=== PATIENT | female | born 1940 | race Caucasian/White ===

== ENCOUNTER 2019-05-10 23:32 | Emergency (ER) | payer MEDICARE, OTHER ==
[~2019-05-10] VITALS: Ht 167.6 cm; Wt 104.5 kg
[2019-05-11 00:25] LABS: BASOPHILS # (AUTO) 0.1 X10'3 (0-0.2); BASOPHILS % (AUTO) 0.7 % (0-1); EOSINOPHILS # (AUTO) 0.1 X10'3 (0-0.9); EOSINOPHILS % (AUTO) 0.4 % (0-6); HEMATOCRIT 34.6 % (35.0-45.0); HEMOGLOBIN 11.4 g/dl (12.0-16.0); LYMPHOCYTES # (AUTO) 0.8 X10'3 (1.1-4.8); LYMPHOCYTES % (AUTO) 6.7 % (21-51); MEAN CORPUSCULAR HEMOGLOBIN 26.4 PG (27.0-31.0); MEAN CORPUSCULAR HGB CONC 32.9 g/dL (33.0-36.5); MEAN CORPUSCULAR VOLUME 80.4 FL (78-98); MEAN PLATELET VOLUME 7.6 FL (7.4-10.4); MONOCYTES # (AUTO) 0.9 X10'3 (0-0.9); MONOCYTES % (AUTO) 7.5 % (2-12); NEUTROPHILS # (AUTO) 10.3 X10'3 (1.8-7.7); NEUTROPHILS % (AUTO) 84.7 % (42-75); PLATELET COUNT 167 X10'3 (140-440); RED CELL DISTRIBUTION WIDTH 15.9 % (11.5-14.5); WHITE BLOOD COUNT 12.2 X10'3 (4.5-11.0)
[2019-05-11 00:32] LABS: ALANINE AMINOTRANSFERASE 25 U/L (12-78); ALBUMIN 3.5 G/DL (3.4-5.0); ALBUMIN/GLOBULIN RATIO 0.8 (1.1-1.5); ALKALINE PHOSPHATASE 94 IU/L (46-116); ANION GAP 10 (8-16); ASPARTATE AMINO TRANSFERASE 20 U/L (10-37); BILIRUBIN,TOTAL 0.4 MG/DL (0.1-1.0); BLOOD UREA NITROGEN 16 MG/DL (7-18); BUN/CREATININE RATIO 16.3 (6.6-38.0); CALCIUM 9.5 MG/DL (8.5-10.1); CHLORIDE 104 MMOL/L (99-107); CREATININE 0.98 MG/DL (0.40-0.90); GLUCOSE 191 MG/DL (70-104); POTASSIUM 3.9 MMOL/L (3.5-5.1); SODIUM 139 MMOL/L (135-145); TOTAL CARBON DIOXIDE 25.2 MMOL/L (24-32); TOTAL PROTEIN 7.8 G/DL (6.4-8.2); eGFR 55 ML/MIN
[2019-05-11] MEDS ORDERED: aspirin 81mg tab.chew PO ONE (00:40)
[2019-05-11] MEDS ORDERED: ondansetron/PF 4mg/2ml inj IV ONE (00:45)
--- NOTE | 2019-05-11 01:02 | NUR ---
Patient up to the bathroom w/o problem, was unable to give UA
[2019-05-11] MEDS ORDERED: normal saline 1000ML IV soln IVB ONE (01:20)
[2019-05-11 02:02] LABS: LIPASE 67 U/L (73-393); MAGNESIUM 1.4 MG/DL (1.5-2.4)
--- NOTE | 2019-05-11 02:28 | NUR ---
Patient resting comfortably on gurney, reports nausea is resloving since Zofran given.
[2019-05-11] MEDS ORDERED: ONDA4TAB6 PO (02:55)
[2019-05-11] MEDS ORDERED: acetaminophen 325mg tablet PO ONE (03:00)
--- NOTE | 2019-05-11 03:17 | NUR ---
Patient gave urine sample, per MD will discharge after results.
[2019-05-11 03:28] LABS: CLARITY,URINE SLIGHTLY CLOUDY (Clear); COLOR,URINE YELLOW (Yellow); GLUCOSE, URINE NEGATIVE (Neg); KETONES,URINE NEGATIVE (Neg); LEUKOCYTE ESTERASE ,URINE NEGATIVE (Neg); NITRITES, URINE NEGATIVE (Neg); OCCULT BLOOD,URINE TRACE-INTACT (Neg); PH,URINE 5.5 (4.8-8.0); PROTEIN,URINE 30 mg/dl (Neg); UROBILINOGEN,URINE 0.2 E.U/dL (0.2-1.0)
[2019-05-11 03:30] LABS: UA COLLECTION TYPE CLN CATCH MIDSTREAM
[2019-05-11 03:35] LABS: FINE GRANULAR CAST 0-3 /LPF (NEGATIVE); HYALINE CASTS 0-3 /LPF (NEGATIVE)
[2019-05-11 03:36] LABS: BACTERIA,URINE FEW /HPF (Neg); MUCUS STRANDS FEW /LPF (Neg); RBC,URINE 0-2 /HPF (0-2); SQUAMOUS EPITHELIAL CELL,UR MANY /LPF (FEW); WBC,URINE 0-4 /HPF (0-4)
[2019-05-11 03:53] VITALS: BP 147/51
== END 2019-05-11 03:57 | disposition home or self-care (01) ==
LOC: ER 23:33 → EDBD 23:33 → ER 05-11 03:57
DX: K52.9 Noninfective gastroenteritis and colitis, unspecified (principal); M54.5 Low back pain; R51 Headache; G89.29 Other chronic pain; E11.9 Type 2 diabetes mellitus without complications; I25.10 Atherosclerotic heart disease of native coronary artery without angina pectoris; Z90.49 Acquired absence of other specified parts of digestive tract; Z95.1 Presence of aortocoronary bypass graft; Z88.8 Allergy status to other drugs, medicaments and biological substances; Z79.899 Other long term (current) drug therapy; Z88.6 Allergy status to analgesic agent
CPT/HCPCS: 36415; 71045; 74176; 80053; 81001; 83690; 83735; 83880; 84484; 85025; 85610; 93005; 96361; 96374; 99284; J2405; J7030; J7040

== ENCOUNTER 2022-04-04 11:36 | Day surgery (SDC) | payer MEDICARE, OTHER ==
[2022-04-04] VITALS (13 sets, daily range): BP systolic 114–173; BP diastolic 57–87
[~2022-04-04] VITALS: Ht 167.6 cm; Wt 112.4 kg
[~2022-04-04 11:36] MED LIST: ONDA4TAB6 PO
[2022-04-04] MEDS ORDERED: MIDAZolam 1mg/ml 10ml vial IV ONE (11:55)
[2022-04-04] MEDS ORDERED: fentaNYL/PF 50MCG/1 ML 2ML syringe IV ONE (11:55)
[2022-04-04] MEDS ORDERED: normal saline 1000ml 1,000 ML IV SCH (11:55)
[2022-04-04] MEDS ORDERED: OMEP20CA15 PO (12:28)
[2022-04-04] MEDS ORDERED: ATOR40TA72 PO (12:28)
[2022-04-04] MEDS ORDERED: METF-438 PO (12:28)
[2022-04-04] MEDS ORDERED: EZET10TA6 PO (12:28)
[2022-04-04] MEDS ORDERED: APIX5TAB3 PO (12:28)
[2022-04-04] MEDS ORDERED: SOTA80TA73 PO (12:28)
[2022-04-04] MEDS ORDERED: FOLI0.4T6 PO (12:28)
[2022-04-04] MEDS ORDERED: DENO60DI SUBCUT (12:28)
[2022-04-04] MEDS ORDERED: LIRA0.6P2 SQ (12:28)
[2022-04-04] MEDS ORDERED: LEVO125T68 PO (12:28)
[2022-04-04] MEDS ORDERED: LANTUS SQ (12:28)
[2022-04-04] MEDS ORDERED: CHOL200074 PO (12:28)
[2022-04-04] MEDS ORDERED: [UNRECOGNIZED DRUG - OTHER] PO (12:28)
[2022-04-04] MEDS ORDERED: CARV25TA2 PO (12:28)
[2022-04-04] MEDS ORDERED: DULA1.5P SQ (12:28)
== END 2022-04-04 15:23 | disposition home or self-care (01) ==
LOC: SSTAY O 11:36
PROVIDERS: ATTEND Student in an Organized Health Care Education/Training Program
DX: I48.91 Unspecified atrial fibrillation (principal); Z79.899 Other long term (current) drug therapy; Z98.890 Other specified postprocedural states; Z88.2 Allergy status to sulfonamides; Z88.6 Allergy status to analgesic agent; Z88.8 Allergy status to other drugs, medicaments and biological substances; I48.92 Unspecified atrial flutter; E66.9 Obesity, unspecified
CPT/HCPCS: 82948; 92960; 93005; J2250; J3010; J7030; A4620

== ENCOUNTER 2022-06-18 08:47 | Emergency (ER) | payer MEDICARE, OTHER ==
[~2022-06-18] VITALS: Ht 165.1 cm; Wt 100.9 kg
[~2022-06-18 08:47] MED LIST changes: +APIX5TAB3 PO; +ATOR40TA72 PO; +CARV25TA2 PO; +CHOL200074 PO; +DENO60DI SUBCUT; +DULA1.5P SQ; +EZET10TA6 PO; +FOLI0.4T6 PO; +LANTUS SQ; +LEVO125T68 PO; +LIRA0.6P2 SQ; +METF-438 PO; +OMEP20CA15 PO; -ONDA4TAB6 PO; +SOTA80TA73 PO; +[UNRECOGNIZED DRUG - OTHER] PO
[2022-06-18 09:18] VITALS: BP 148/70
[2022-06-18 10:01] LABS: BASOPHILS # (AUTO) 0.1 X10'3 (0-0.2); BASOPHILS % (AUTO) 0.8 % (0-1); EOSINOPHILS # (AUTO) 0.1 X10'3 (0-0.9); HEMATOCRIT 37.4 % (35.0-45.0); HEMOGLOBIN 12.1 g/dl (12.0-16.0); LYMPHOCYTES # (AUTO) 1.8 X10'3 (1.1-4.8); LYMPHOCYTES % (AUTO) 17.2 % (21-51); MEAN CORPUSCULAR HEMOGLOBIN 28.4 PG (27.0-31.0); MEAN CORPUSCULAR HGB CONC 32.4 g/dL (33.0-36.5); MEAN CORPUSCULAR VOLUME 87.5 FL (78-98); MONOCYTES # (AUTO) 0.7 X10'3 (0-0.9); MONOCYTES % (AUTO) 6.7 % (2-12); NEUTROPHILS # (AUTO) 7.6 X10'3 (1.8-7.7); NEUTROPHILS % (AUTO) 74.3 % (42-75); PLATELET COUNT 147 X10'3 (140-440); RED BLOOD COUNT 4.27 X10'6 (4.20-5.60); RED CELL DISTRIBUTION WIDTH 15.9 % (11.5-14.5); WHITE BLOOD COUNT 10.2 X10'3 (4.5-11.0)
[2022-06-18 10:23] LABS: ALANINE AMINOTRANSFERASE 21 U/L (12-78); ALBUMIN 3.5 G/DL (3.4-5.0); ALBUMIN/GLOBULIN RATIO 0.9 (1.1-1.5); ALKALINE PHOSPHATASE 66 IU/L (46-116); ANION GAP 8 (8-16); ASPARTATE AMINO TRANSFERASE 21 U/L (10-37); BILIRUBIN,TOTAL 0.4 MG/DL (0.1-1.0); BLOOD UREA NITROGEN 18 MG/DL (7-18); CHLORIDE 106 MMOL/L (99-107); GLUCOSE 200 MG/DL (70-104); POTASSIUM 4.2 MMOL/L (3.5-5.1); SODIUM 142 MMOL/L (135-145); TOTAL CARBON DIOXIDE 27.9 MMOL/L (24-32); TOTAL PROTEIN 7.5 G/DL (6.4-8.2); eGFR 43 ML/MIN
== END 2022-06-18 13:43 | disposition left against medical advice (07) ==
LOC: ER 08:47
DX: R07.89 Other chest pain (principal); Z53.21 Procedure and treatment not carried out due to patient leaving prior to being seen by health care provider
CPT/HCPCS: 36415; 71045; 80053; 83880; 84484; 85025; 93005

== ENCOUNTER 2022-06-20 09:48 | Outpatient (CLI) | payer MEDICARE, OTHER ==
[2022-06-20 10:38] LABS: BASOPHILS # (AUTO) 0.1 X10'3 (0-0.2); BASOPHILS % (AUTO) 1.2 % (0-1); EOSINOPHILS # (AUTO) 0.1 X10'3 (0-0.9); HEMATOCRIT 36.9 % (35.0-45.0); HEMOGLOBIN 11.9 g/dl (12.0-16.0); LYMPHOCYTES # (AUTO) 2.4 X10'3 (1.1-4.8); LYMPHOCYTES % (AUTO) 25.4 % (21-51); MEAN CORPUSCULAR HEMOGLOBIN 28.1 PG (27.0-31.0); MEAN CORPUSCULAR HGB CONC 32.4 g/dL (33.0-36.5); MEAN CORPUSCULAR VOLUME 86.9 FL (78-98); MEAN PLATELET VOLUME 8.2 FL (7.4-10.4); MONOCYTES # (AUTO) 0.5 X10'3 (0-0.9); MONOCYTES % (AUTO) 5.4 % (2-12); NEUTROPHILS # (AUTO) 6.3 X10'3 (1.8-7.7); PLATELET COUNT 151 X10'3 (140-440); RED BLOOD COUNT 4.25 X10'6 (4.20-5.60); RED CELL DISTRIBUTION WIDTH 15.6 % (11.5-14.5); WHITE BLOOD COUNT 9.4 X10'3 (4.5-11.0)
[2022-06-20 10:42] LABS: APTT 31 SECONDS (22-32)
[2022-06-20 10:43] LABS: ALBUMIN 3.4 G/DL (3.4-5.0); ANION GAP 8 (8-16); BLOOD UREA NITROGEN 17 MG/DL (7-18); BUN/CREATININE RATIO 14.9 (6.6-38.0); CALCIUM 9.5 MG/DL (8.5-10.1); CHLORIDE 106 MMOL/L (99-107); CHOL/HDL RATIO 2.8 (0.00-4.99); CHOLESTEROL 103 MG/DL (0-200); CREATININE 1.14 MG/DL (0.40-0.90); GLUCOSE 126 MG/DL (70-104); HDL CHOLESTEROL 37 MG/DL (35-60); LDL CHOLESTEROL 44 MG/DL (50-100); POTASSIUM 3.9 MMOL/L (3.5-5.1); SODIUM 141 MMOL/L (135-145); TOTAL CARBON DIOXIDE 27.5 MMOL/L (24-32); TRIGLYCERIDES 168 MG/DL (20-135); eGFR 46 ML/MIN
== END 2022-06-20 23:59 | disposition home or self-care (01) ==
LOC: LAB 09:48 → EDSTATUS 06-27 17:30
PROVIDERS: ATTEND Student in an Organized Health Care Education/Training Program
DX: I25.810 Atherosclerosis of coronary artery bypass graft(s) without angina pectoris (principal); E78.49 Other hyperlipidemia; I10 Essential (primary) hypertension; Z79.01 Long term (current) use of anticoagulants
CPT/HCPCS: 36415; 80048; 80061; 85025; 85610; 85730; J7030

== ENCOUNTER 2022-08-01 11:37 | Day surgery (SDC) | payer MEDICARE, OTHER ==
[2022-08-01] VITALS (10 sets, daily range): BP systolic 138–168; BP diastolic 76–133
[~2022-08-01] VITALS: Ht 165.1 cm; Wt 108.3 kg
[2022-08-01] MEDS ORDERED: verapamil 2.5 mg/ml inj IV ONE (12:00)
[2022-08-01] MEDS ORDERED: LIDOcaine 1% (10mg/ml) 2ml vial ONE (12:00)
[2022-08-01] MEDS ORDERED: nitroGLYCERIN-Tridil 50MG/D5W 250 ML IV ONE (12:00)
[2022-08-01] MEDS ORDERED: iohexol 350MG/ML 100ml bottle IV ONE ×2 (12:00→13:37)
[2022-08-01] MEDS ORDERED: heparin 1,000unit/ml 10ml vial 10 ML ONE (12:00)
[2022-08-01] MEDS ORDERED: normal saline 1,000 ML IV SCH (12:05)
[2022-08-01] MEDS ORDERED: LORazepam 0.5 MG tablet PO PRN (12:05)
[2022-08-01] MEDS ORDERED: diphenhydrAMINE 25mg capsule PO PRN (12:05)
[2022-08-01] MEDS ORDERED: ANAS1TAB10 PO (12:43)
[2022-08-01] MEDS ORDERED: EMPA25TA PO (12:43)
[2022-08-01] MEDS ORDERED: CARV-50 PO (12:44)
[2022-08-01 12:46] LABS: BASOPHILS # (AUTO) 0.1 X10'3 (0-0.2); BASOPHILS % (AUTO) 0.9 % (0-1); EOSINOPHILS # (AUTO) 0.1 X10'3 (0-0.9); EOSINOPHILS % (AUTO) 1.5 % (0-6); HEMATOCRIT 40.6 % (35.0-45.0); LYMPHOCYTES # (AUTO) 1.7 X10'3 (1.1-4.8); MEAN CORPUSCULAR HEMOGLOBIN 28.1 PG (27.0-31.0); MEAN CORPUSCULAR HGB CONC 32.1 g/dL (33.0-36.5); MEAN CORPUSCULAR VOLUME 87.8 FL (78-98); MEAN PLATELET VOLUME 7.5 FL (7.4-10.4); MONOCYTES # (AUTO) 0.5 X10'3 (0-0.9); MONOCYTES % (AUTO) 5.6 % (2-12); NEUTROPHILS # (AUTO) 5.9 X10'3 (1.8-7.7); PLATELET COUNT 177 X10'3 (140-440); RED BLOOD COUNT 4.62 X10'6 (4.20-5.60); RED CELL DISTRIBUTION WIDTH 16.3 % (11.5-14.5); WHITE BLOOD COUNT 8.3 X10'3 (4.5-11.0)
[2022-08-01 12:50] LABS: ALBUMIN 4.1 G/DL (3.4-5.0); ANION GAP 8 (8-16); BLOOD UREA NITROGEN 10 MG/DL (7-18); BUN/CREATININE RATIO 10.5 (6.6-38.0); CALCIUM 8.8 MG/DL (8.5-10.1); CHLORIDE 104 MMOL/L (99-107); CREATININE 0.95 MG/DL (0.40-0.90); GLUCOSE 165 MG/DL (70-104); MAGNESIUM 1.8 MG/DL (1.5-2.4); POTASSIUM 3.5 MMOL/L (3.5-5.1); SODIUM 140 MMOL/L (135-145); TOTAL CARBON DIOXIDE 27.9 MMOL/L (24-32); eGFR 56 ML/MIN
[2022-08-01] MEDS ORDERED: midazolam 1 mg/ML 2ml injection ONE (12:51)
[2022-08-01] MEDS ORDERED: FENTANYL CITRATE/PF 50 MCG/1 ML VIAL ONE (12:52)
[2022-08-01 12:54] LABS: APTT 30 SECONDS (22-32)
[2022-08-01] MEDS ORDERED: LIDOcaine 1% 30ml preserv. free vial ONE (13:15)
[2022-08-01] MEDS ORDERED: iohexol 350 MG/ML 50ML vial IV ONE (13:26)
--- NOTE | 2022-08-01 14:16 | NUR ---
Bedside report received from Yash RN, right groin site stable. V/S stable. Will continue to monitor.
[2022-08-01] MEDS ORDERED: OXAZEpam 15mg capsule PO PRN (14:35)
[2022-08-01] MEDS ORDERED: proCHLORperazine 10 MG/2 ml inj IV PRN (14:35)
[2022-08-01] MEDS ORDERED: ondansetron/PF 4mg/2ml inj IV PRN (14:35)
[2022-08-01] MEDS ORDERED: HYDROcodone/acetaminophen 10/325mg tab PO ONE (15:30)
[2022-08-01] MEDS ORDERED: metoprolol tartrate 25mg tablet PO SCH (20:00)
== END 2022-08-01 17:45 | disposition home or self-care (01) ==
LOC: SSTAY O 11:37
PROVIDERS: ATTEND Student in an Organized Health Care Education/Training Program
DX: I25.10 Atherosclerotic heart disease of native coronary artery without angina pectoris (principal); I10 Essential (primary) hypertension; E11.9 Type 2 diabetes mellitus without complications; I48.0 Paroxysmal atrial fibrillation; I48.92 Unspecified atrial flutter; E78.5 Hyperlipidemia, unspecified; J44.9 Chronic obstructive pulmonary disease, unspecified; C50.911 Malignant neoplasm of unspecified site of right female breast; Z98.890 Other specified postprocedural states; Z95.1 Presence of aortocoronary bypass graft; Z79.01 Long term (current) use of anticoagulants; Z79.84 Long term (current) use of oral hypoglycemic drugs; Z79.4 Long term (current) use of insulin; Z79.899 Other long term (current) drug therapy; Z88.2 Allergy status to sulfonamides; Z88.5 Allergy status to narcotic agent; Z88.8 Allergy status to other drugs, medicaments and biological substances; Z83.49 Family history of other endocrine, nutritional and metabolic diseases
CPT/HCPCS: 36415; 80048; 82948; 83735; 85025; 85610; 85730; 93005; 93459; 93567; C1769; C1894; J1644; J2250; J3010; J3490; J7030; Q9967; 99152; 99153; A6258; C1725

== ENCOUNTER 2023-08-01 23:29 | Emergency (ER) | payer MEDICARE, OTHER ==
[~2023-08-01] VITALS: Ht 165.1 cm; Wt 92.7 kg
[~2023-08-01 23:29] MED LIST changes: +ANAS1TAB10 PO; +CARV-50 PO; -CARV25TA2 PO; -DENO60DI SUBCUT; -DULA1.5P SQ; +EMPA25TA PO; -EZET10TA6 PO; -LIRA0.6P2 SQ; -OMEP20CA15 PO; -SOTA80TA73 PO; -[UNRECOGNIZED DRUG - OTHER] PO
[2023-08-02 00:33] LABS: BASOPHILS # (AUTO) 0.1 X10'3 (0-0.2); BASOPHILS % (AUTO) 0.7 % (0-1); EOSINOPHILS # (AUTO) 0.1 X10'3 (0-0.9); EOSINOPHILS % (AUTO) 0.7 % (0-6); HEMATOCRIT 31.8 % (35.0-45.0); HEMOGLOBIN 10.1 g/dl (12.0-16.0); LYMPHOCYTES # (AUTO) 1.3 X10'3 (1.1-4.8); MEAN CORPUSCULAR HEMOGLOBIN 27.5 PG (27.0-31.0); MEAN CORPUSCULAR HGB CONC 31.9 g/dL (33.0-36.5); MEAN CORPUSCULAR VOLUME 86.1 FL (78-98); MEAN PLATELET VOLUME 8.1 FL (7.4-10.4); MONOCYTES # (AUTO) 0.5 X10'3 (0-0.9); MONOCYTES % (AUTO) 5.9 % (2-12); NEUTROPHILS # (AUTO) 7.1 X10'3 (1.8-7.7); NEUTROPHILS % (AUTO) 78.7 % (42-75); PLATELET COUNT 160 X10'3 (140-440); RED BLOOD COUNT 3.69 X10'6 (4.20-5.60); RED CELL DISTRIBUTION WIDTH 18.6 % (11.5-14.5); WHITE BLOOD COUNT 9.1 X10'3 (4.5-11.0)
[2023-08-02 00:39] LABS: ALANINE AMINOTRANSFERASE 26 U/L (12-78); ALBUMIN 2.9 G/DL (3.4-5.0); ALBUMIN/GLOBULIN RATIO 0.7 (1.1-1.5); ALKALINE PHOSPHATASE 101 IU/L (46-116); ANION GAP 12 (8-16); ASPARTATE AMINO TRANSFERASE 40 U/L (10-37); BILIRUBIN,TOTAL 0.7 MG/DL (0.1-1.0); BLOOD UREA NITROGEN 16 MG/DL (7-18); BUN/CREATININE RATIO 15.8 (10.0-20.0); CALCIUM 8.8 MG/DL (8.5-10.1); CHLORIDE 107 MMOL/L (99-107); CREATININE 1.01 MG/DL (0.40-0.90); GLUCOSE 121 MG/DL (70-104); POTASSIUM 3.9 MMOL/L (3.5-5.1); SODIUM 144 MMOL/L (135-145); TOTAL CARBON DIOXIDE 24.9 MMOL/L (24-32); TOTAL PROTEIN 7.2 G/DL (6.4-8.2); eCRCL 39 ML/MIN; eGFR 52 ML/MIN
[2023-08-02 00:54] LABS: ANISOCYTOSIS 2+; PLATELET ESTIMATE NORMAL
[2023-08-02 00:55] LABS: BURR CELLS FEW; POLYCHROMASIA FEW; SCHISTOCYTES FEW
[2023-08-02 03:38] LABS: BILIRUBIN,URINE NEGATIVE (Neg); CLARITY,URINE SLIGHTLY CLOUDY (Clear); COLOR,URINE YELLOW (Yellow); GLUCOSE, URINE >=1000 mg/dl (Neg); KETONES,URINE NEGATIVE (Neg); LEUKOCYTE ESTERASE ,URINE NEGATIVE (Neg); NITRITES, URINE NEGATIVE (Neg); OCCULT BLOOD,URINE NEGATIVE (Neg); PH,URINE 5.5 (4.8-8.0); PROTEIN,URINE NEGATIVE (Neg); UROBILINOGEN,URINE 0.2 E.U/dL (0.2-1.0)
[2023-08-02 03:46] LABS: UA COLLECTION TYPE CLN CATCH MIDSTREAM
[2023-08-02 03:48] LABS: MUCUS STRANDS NONE SEEN /LPF (Neg); SQUAMOUS EPITHELIAL CELL,UR MODERATE /LPF (FEW)
[2023-08-02 03:50] LABS: RBC,URINE 0-2 /HPF (0-2); WBC CLUMPS,URINE FEW /HPF (NEGATIVE); YEAST MANY /HPF (NEGATIVE)
[2023-08-02 03:51] LABS: BACTERIA,URINE 1+ /HPF (Neg); TRANSITIONAL EPI CELLS,URINE FEW /HPF
[2023-08-02] MEDS ORDERED: CEPH-585 PO (04:22)
[2023-08-02] MEDS ORDERED: cephalexin 250mg capsule PO ONE (04:30)
[2023-08-02 04:40] VITALS: BP 128/62; PULSE 78; RESP 16; TEMP 98; O2SAT 98
== END 2023-08-02 04:43 | disposition home or self-care (01) ==
LOC: ER 23:29
DX: E11.649 Type 2 diabetes mellitus with hypoglycemia without coma (principal); N39.0 Urinary tract infection, site not specified; I25.10 Atherosclerotic heart disease of native coronary artery without angina pectoris; Z90.49 Acquired absence of other specified parts of digestive tract; Z95.5 Presence of coronary angioplasty implant and graft; Z79.899 Other long term (current) drug therapy; Z88.2 Allergy status to sulfonamides; Z88.8 Allergy status to other drugs, medicaments and biological substances
CPT/HCPCS: 36415; 80053; 81001; 82947; 82948; 85008; 85025; 87088; 99285

== ENCOUNTER 2023-09-12 11:11 | Emergency (ER) | payer MEDICARE, OTHER ==
[~2023-09-12] VITALS: Ht 172.7 cm; Wt 91.0 kg
[~2023-09-12 11:11] MED LIST changes: -CARV-50 PO; +CARV3.12 PO; -EMPA25TA PO; +FERR324T4 PO; -LANTUS SQ; -METF-438 PO; +PANT40TA54 PO
[2023-09-12 11:35] VITALS: BP 119/84; PULSE 87; RESP 18; TEMP 97.8; O2SAT 98
== END 2023-09-12 11:51 | disposition home or self-care (01) ==
LOC: ER 11:12
DX: E11.65 Type 2 diabetes mellitus with hyperglycemia (principal); Z88.2 Allergy status to sulfonamides; Z88.5 Allergy status to narcotic agent; Z79.899 Other long term (current) drug therapy; Z79.2 Long term (current) use of antibiotics; Z90.49 Acquired absence of other specified parts of digestive tract
CPT/HCPCS: 82948; 99282

== ENCOUNTER 2023-10-03 10:21 | Outpatient (CLI) | payer MEDICARE, OTHER ==
[~2023-10-03 10:21] MED LIST changes: +iohexol 350MG/ML 100ml bottle IV ONE
[2023-10-03 11:16] LABS: BASOPHILS # (AUTO) 0.1 X10'3 (0-0.2); BASOPHILS % (AUTO) 0.8 % (0-1); EOSINOPHILS # (AUTO) 0.1 X10'3 (0-0.9); HEMATOCRIT 37.4 % (35.0-45.0); HEMOGLOBIN 11.8 g/dl (12.0-16.0); LYMPHOCYTES # (AUTO) 0.8 X10'3 (1.1-4.8); LYMPHOCYTES % (AUTO) 5.4 % (21-51); MEAN CORPUSCULAR HEMOGLOBIN 26.5 PG (27.0-31.0); MEAN CORPUSCULAR HGB CONC 31.5 g/dL (33.0-36.5); MEAN CORPUSCULAR VOLUME 84.1 FL (78-98); MEAN PLATELET VOLUME 7.6 FL (7.4-10.4); MONOCYTES % (AUTO) 7.1 % (2-12); NEUTROPHILS # (AUTO) 11.9 X10'3 (1.8-7.7); NEUTROPHILS % (AUTO) 85.7 % (42-75); PLATELET COUNT 172 X10'3 (140-440); RED BLOOD COUNT 4.45 X10'6 (4.20-5.60); RED CELL DISTRIBUTION WIDTH 19.9 % (11.5-14.5); WHITE BLOOD COUNT 13.9 X10'3 (4.5-11.0)
[2023-10-03 11:19] LABS: APTT 32 SECONDS (22-32); INR 1.3 INR
[2023-10-03 11:23] LABS: ALANINE AMINOTRANSFERASE 14 U/L (12-78); ALBUMIN 2.4 G/DL (3.4-5.0); ALBUMIN/GLOBULIN RATIO 0.6 (1.1-1.5); ALKALINE PHOSPHATASE 145 IU/L (46-116); ANION GAP 13 (8-16); ASPARTATE AMINO TRANSFERASE 26 U/L (10-37); BILIRUBIN,TOTAL 1.1 MG/DL (0.1-1.0); BLOOD UREA NITROGEN 16 MG/DL (7-18); BUN/CREATININE RATIO 10.7 (10.0-20.0); CALCIUM 8.1 MG/DL (8.5-10.1); CHLORIDE 103 MMOL/L (99-107); GLUCOSE 240 MG/DL (70-104); SODIUM 138 MMOL/L (135-145); TOTAL CARBON DIOXIDE 22.3 MMOL/L (24-32); TOTAL PROTEIN 6.4 G/DL (6.4-8.2); eGFR 33 ML/MIN
[2023-10-04] MEDS ORDERED: CEPH-585 PO (14:18)
[2023-10-12] MEDS ORDERED: VANC25SO PO (16:05)
[2023-10-12] MEDS ORDERED: SPIR50TA5 PO (16:05)
[2023-10-12] MEDS ORDERED: FURO20TA4 PO (16:05)
[2023-10-12] MEDS ORDERED: LACT10SO78 PO (16:06)
[2023-11-10] MEDS ORDERED: LORA2ORA PO (11:02)
[2023-11-10] MEDS ORDERED: MORP10SY6 PO (11:02)
== END 2023-10-03 23:59 | disposition home or self-care (01) ==
LOC: RAD 10:21
PROVIDERS: ATTEND Student in an Organized Health Care Education/Training Program
DX: I48.91 Unspecified atrial fibrillation (principal); I48.92 Unspecified atrial flutter
CPT/HCPCS: 36415; 80053; 85025; 85610; 85730; J3490; Q9967

== ENCOUNTER 2023-10-04 08:42 | Emergency (ER) | payer MEDICARE, OTHER ==
[~2023-10-04] VITALS: Ht 165.1 cm; Wt 90.0 kg
[~2023-10-04 08:42] MED LIST changes: -iohexol 350MG/ML 100ml bottle IV ONE
[2023-10-04 09:19] VITALS: TEMP 97.9
[2023-10-04 09:56] LABS: BASOPHILS # (AUTO) 0.1 X10'3 (0-0.2); BASOPHILS % (AUTO) 0.5 % (0-1); EOSINOPHILS # (AUTO) 0.1 X10'3 (0-0.9); EOSINOPHILS % (AUTO) 0.7 % (0-6); HEMATOCRIT 38.5 % (35.0-45.0); HEMOGLOBIN 12.2 g/dl (12.0-16.0); LYMPHOCYTES # (AUTO) 0.6 X10'3 (1.1-4.8); LYMPHOCYTES % (AUTO) 5.5 % (21-51); MEAN CORPUSCULAR HEMOGLOBIN 26.6 PG (27.0-31.0); MEAN CORPUSCULAR HGB CONC 31.6 g/dL (33.0-36.5); MEAN CORPUSCULAR VOLUME 84.1 FL (78-98); MONOCYTES # (AUTO) 0.8 X10'3 (0-0.9); MONOCYTES % (AUTO) 6.9 % (2-12); NEUTROPHILS # (AUTO) 9.8 X10'3 (1.8-7.7); NEUTROPHILS % (AUTO) 86.4 % (42-75); PLATELET COUNT 147 X10'3 (140-440); RED BLOOD COUNT 4.58 X10'6 (4.20-5.60); RED CELL DISTRIBUTION WIDTH 20.6 % (11.5-14.5); WHITE BLOOD COUNT 11.3 X10'3 (4.5-11.0)
[2023-10-04 10:12] LABS: ALBUMIN 2.4 G/DL (3.4-5.0); ANION GAP 13 (8-16); BLOOD UREA NITROGEN 18 MG/DL (7-18); BUN/CREATININE RATIO 11.7 (10.0-20.0); CALCIUM 8.3 MG/DL (8.5-10.1); CHLORIDE 105 MMOL/L (99-107); CREATININE 1.54 MG/DL (0.40-0.90); GLUCOSE 227 MG/DL (70-104); POTASSIUM 3.1 MMOL/L (3.5-5.1); SODIUM 140 MMOL/L (135-145); TOTAL CARBON DIOXIDE 21.7 MMOL/L (24-32); eCRCL 25 ML/MIN; eGFR 32 ML/MIN
[2023-10-04 10:41] LABS: ANISOCYTOSIS 3+; PLATELET ESTIMATE NORMAL
[2023-10-04 10:42] LABS: BURR CELLS FEW; TEAR DROP CELLS FEW
[2023-10-04] MEDS: potassium Cl 20 mEq SR tablet PO STA (11:16)
[2023-10-04 14:04] LABS: BILIRUBIN,URINE MODERATE (Neg); CLARITY,URINE SLIGHTLY CLOUDY (Clear); COLOR,URINE YELLOW (Yellow); GLUCOSE, URINE NEGATIVE (Neg); KETONES,URINE TRACE mg/dl (Neg); LEUKOCYTE ESTERASE ,URINE NEGATIVE (Neg); NITRITES, URINE NEGATIVE (Neg); OCCULT BLOOD,URINE NEGATIVE (Neg); PROTEIN,URINE NEGATIVE (Neg); UROBILINOGEN,URINE 0.2 E.U/dL (0.2-1.0)
[2023-10-04 14:10] LABS: UA COLLECTION TYPE STRAIGHT CATH
[2023-10-04 14:12] LABS: SQUAMOUS EPITHELIAL CELL,UR FEW /LPF (FEW); YEAST MANY /HPF (NEGATIVE)
[2023-10-04 14:13] LABS: BACTERIA,URINE FEW /HPF (Neg); WBC CLUMPS,URINE FEW /HPF (NEGATIVE); WBC,URINE 20-30 /HPF (0-4)
[2023-10-04] MEDS ORDERED: CEPH-585 PO (14:18)
[2023-10-04 14:56] VITALS: BP 116/65; PULSE 96; RESP 16; O2SAT 99
== END 2023-10-04 15:24 | disposition home or self-care (01) ==
LOC: ER 08:43
DX: N39.0 Urinary tract infection, site not specified (principal); I48.91 Unspecified atrial fibrillation; I10 Essential (primary) hypertension; E11.9 Type 2 diabetes mellitus without complications; I25.10 Atherosclerotic heart disease of native coronary artery without angina pectoris; E78.00 Pure hypercholesterolemia, unspecified; Z90.49 Acquired absence of other specified parts of digestive tract
CPT/HCPCS: 36415; 71045; 80048; 81001; 84484; 85008; 85025; 86885; 86900; 86901; 93005; 99285; C1758

== ENCOUNTER 2023-10-25 13:39 | Inpatient (IN) | payer MEDICARE, OTHER ==
[~2023-10-25] VITALS: Ht 165.1 cm; Wt 88.0 kg
[~2023-10-25 13:39] MED LIST changes: +FURO20TA4 PO; +LACT10SO78 PO; +SPIR50TA5 PO; +VANC25SO PO
[2023-10-25 14:17] LABS: BASOPHILS # (AUTO) 0.1 X10'3 (0-0.2); BASOPHILS % (AUTO) 0.8 % (0-1); EOSINOPHILS # (AUTO) 0.3 X10'3 (0-0.9); HEMATOCRIT 36.9 % (35.0-45.0); HEMOGLOBIN 11.9 g/dl (12.0-16.0); LYMPHOCYTES # (AUTO) 1.1 X10'3 (1.1-4.8); LYMPHOCYTES % (AUTO) 12.1 % (21-51); MEAN CORPUSCULAR HEMOGLOBIN 27.4 PG (27.0-31.0); MEAN CORPUSCULAR HGB CONC 32.2 g/dL (33.0-36.5); MEAN PLATELET VOLUME 7.5 FL (7.4-10.4); MONOCYTES # (AUTO) 0.6 X10'3 (0-0.9); MONOCYTES % (AUTO) 6.3 % (2-12); NEUTROPHILS # (AUTO) 7.3 X10'3 (1.8-7.7); NEUTROPHILS % (AUTO) 77.8 % (42-75); PLATELET COUNT 157 X10'3 (140-440); RED BLOOD COUNT 4.34 X10'6 (4.20-5.60); RED CELL DISTRIBUTION WIDTH 23.4 % (11.5-14.5); WHITE BLOOD COUNT 9.4 X10'3 (4.5-11.0)
[2023-10-25 14:34] LABS: ALANINE AMINOTRANSFERASE 27 U/L (12-78); ALBUMIN 1.8 G/DL (3.4-5.0); ALBUMIN/GLOBULIN RATIO 0.4 (1.1-1.5); ALKALINE PHOSPHATASE 333 IU/L (46-116); ANION GAP 15 (8-16); ASPARTATE AMINO TRANSFERASE 39 U/L (10-37); BILIRUBIN,TOTAL 0.9 MG/DL (0.1-1.0); BLOOD UREA NITROGEN 30 MG/DL (7-18); BUN/CREATININE RATIO 17.4 (10.0-20.0); CALCIUM 8.5 MG/DL (8.5-10.1); CHLORIDE 110 MMOL/L (99-107); CREATININE 1.72 MG/DL (0.40-0.90); GLUCOSE 212 MG/DL (70-104); LIPASE 14 U/L (16-77); POTASSIUM 4.2 MMOL/L (3.5-5.1); SODIUM 143 MMOL/L (135-145); TOTAL CARBON DIOXIDE 18.2 MMOL/L (24-32); eCRCL 22 ML/MIN; eGFR 28 ML/MIN
[2023-10-25 14:49] LABS: PLATELET ESTIMATE NORMAL
[2023-10-25 14:50] LABS: POLYCHROMASIA FEW
[2023-10-25 14:51] LABS: ANISOCYTOSIS 3+
[2023-10-25 14:53] LABS: ELLIPTOCYTES FEW; SCHISTOCYTES FEW
[2023-10-25 18:08] LABS: ETHANOL < 10 MG/DL (<10)
[2023-10-25] MEDS: nitroGLYCERIN 1gm ointment UD TP ONE (19:00)
[2023-10-25] MEDS: aspirin 325mg tablet, delayed-release (Ecotrin) PO ONE (19:00)
[2023-10-25] MEDS: methylPREDNISolone sod succ 125mg/2ml vial IV ONE (19:02)
[2023-10-25] MEDS: furosemide 10 MG/1 ML 10ml inj IV ONE (19:03)
[2023-10-25] MEDS: CefTRIAXone 2gm/D5W 50ml BAG 50 ML IV ONE (19:03)
[2023-10-25] MEDS: azithromycin/NS 500mg/250ml 250 ML IV ONE (20:29)
[2023-10-25] MEDS ORDERED: magnesium 2GM in 50ml NS 50 ML IV PRN (20:40)
[2023-10-25] MEDS ORDERED: magnesium Cl slow-release 64mg tablet PO PRN (20:40)
[2023-10-25] MEDS ORDERED: acetaminophen 325mg tablet PO PRN (20:40)
[2023-10-25] MEDS ORDERED: mag hydrox/Alum hydrox/simeth 30ml oral suspension PO PRN (20:40)
[2023-10-25] MEDS ORDERED: potassium Cl 40MEQ/1/2NS 520ml 520 ML IV PRN (20:40)
[2023-10-25] MEDS ORDERED: magnesium 4gm in 100ml NS 100 ML IV PRN (20:40)
[2023-10-25] MEDS ORDERED: potassium Cl 20 mEq SR tablet PO PRN ×2 (20:40)
[2023-10-25] MEDS ORDERED: DEXTROSE 15 GM of carb/4 tabs (each vial/BOTTLE has 4 tablets) PO PRN ×2 (22:35)
[2023-10-25] MEDS ORDERED: dextrose 50%-water 50ml dispensing syringe IV PRN ×2 (22:35)
[2023-10-25] MEDS ORDERED: glucagon, human recombinant 1mg kit SUBCUT PRN (22:35)
[2023-10-25] MEDS: MESSAGE TO PHARMACY PO ONE (22:50)
[2023-10-25] MEDS: albumin (human) 25% 100 ML IV solution IV ONE (23:42)
[2023-10-26 03:00] VITALS: BP 152/77; PULSE 115; RESP 16; O2SAT 98
[2023-10-26] MEDS: acetaminophen 325mg tablet PO PRN (05:05)
[2023-10-26 06:00] VITALS: BP 125/81; PULSE 101; RESP 15; TEMP 97.7; O2SAT 96
[2023-10-26 07:02] LABS: EOSINOPHILS % (AUTO) 0 % (0-6); HEMOGLOBIN 11.1 g/dl (12.0-16.0); LYMPHOCYTES # (AUTO) 0.6 X10'3 (1.1-4.8); MONOCYTES # (AUTO) 0.1 X10'3 (0-0.9); NEUTROPHILS # (AUTO) 7.3 X10'3 (1.8-7.7)
[2023-10-26 07:05] LABS: BASOPHILS % (AUTO) 0.2 % (0-1); MEAN CORPUSCULAR HEMOGLOBIN 27.5 PG (27.0-31.0); MEAN CORPUSCULAR HGB CONC 32.7 g/dL (33.0-36.5); MEAN CORPUSCULAR VOLUME 84.2 FL (78-98); MEAN PLATELET VOLUME 7.9 FL (7.4-10.4); MONOCYTES % (AUTO) 1.3 % (2-12); NEUTROPHILS % (AUTO) 91.5 % (42-75); PLATELET COUNT 111 X10'3 (140-440); RED BLOOD COUNT 4.03 X10'6 (4.20-5.60); RED CELL DISTRIBUTION WIDTH 23.5 % (11.5-14.5)
[2023-10-26 07:20] LABS: ALBUMIN 2.3 G/DL (3.4-5.0); ANION GAP 16 (8-16); BLOOD UREA NITROGEN 31 MG/DL (7-18); BUN/CREATININE RATIO 17.7 (10.0-20.0); CALCIUM 8.2 MG/DL (8.5-10.1); CHLORIDE 108 MMOL/L (99-107); CREATININE 1.75 MG/DL (0.40-0.90); GLUCOSE 248 MG/DL (70-104); MAGNESIUM 1.9 MG/DL (1.5-2.4); PHOSPHORUS 4.2 MG/DL (2.3-4.5); POTASSIUM 4.5 MMOL/L (3.5-5.1); SODIUM 143 MMOL/L (135-145); TOTAL CARBON DIOXIDE 19.3 MMOL/L (24-32); eCRCL 22 ML/MIN; eGFR 28 ML/MIN
[2023-10-26] MEDS: furosemide 20 MG/2 ML vial IV SCH (08:00)
[2023-10-26] MEDS: K and/or MAG REPLACEMENT MC SCH (08:00)
[2023-10-26] MEDS ORDERED: furosemide 20MG tablet PO SCH (08:00)
[2023-10-26] MEDS: lactulose 20gm/30ml cup PO SCH (08:00)
[2023-10-26] MEDS ORDERED: anastrozole 1 MG tablet PO SCH (08:00)
[2023-10-26] MEDS: carVEDilol 3.125mg tablet PO SCH (08:12)
[2023-10-26] MEDS: folic acid 0.4mg tablet PO SCH (08:12)
[2023-10-26] MEDS: apixaban 5mg tablet PO SCH (08:13)
[2023-10-26] MEDS: pantoprazole 40mg Tablet.DR PO SCH (08:13)
[2023-10-26] MEDS: levoTHYROXINE 75mcg tablet PO SCH (08:21)
[2023-10-26 08:25] LABS: PLATELET ESTIMATE DECREASED
[2023-10-26 08:28] LABS: ANISOCYTOSIS 3+; ELLIPTOCYTES 1+; POLYCHROMASIA 1+; SCHISTOCYTES FEW; TARGET CELLS 1+
[2023-10-26] MEDS ORDERED: spironolactone 50 MG tablet PO SCH (08:30)
[2023-10-26] MEDS: anastrozole 1 MG tablet PO ONE (08:57)
[2023-10-26] MEDS: spironolactone 50 MG tablet PO SCH (08:57)
[2023-10-26] MEDS: furosemide 20MG tablet PO ONE (09:02)
[2023-10-26] MEDS: insulin Lispro (HumaLOG) vial - multi-dose SQ SCH (09:07)
[2023-10-26 10:00] VITALS: BP 120/73; PULSE 111; RESP 16; TEMP 98.2; O2SAT 97
[2023-10-26] MEDS: atorvastatin 20mg tablet PO SCH (11:37)
[2023-10-26 13:44] LABS: BILIRUBIN,URINE NEGATIVE (Neg); CLARITY,URINE CLEAR (Clear); COLOR,URINE YELLOW (Yellow); GLUCOSE, URINE NEGATIVE (Neg); KETONES,URINE NEGATIVE (Neg); LEUKOCYTE ESTERASE ,URINE TRACE (Neg); NITRITES, URINE NEGATIVE (Neg); OCCULT BLOOD,URINE NEGATIVE (Neg); PH,URINE 5.5 (4.8-8.0); PROTEIN,URINE NEGATIVE (Neg); UROBILINOGEN,URINE 0.2 E.U/dL (0.2-1.0)
[2023-10-26 13:46] LABS: UA COLLECTION TYPE STRAIGHT CATH
[2023-10-26 13:51] LABS: BACTERIA,URINE FEW /HPF (Neg); MUCUS STRANDS FEW /LPF (Neg); RBC,URINE 0-2 /HPF (0-2); SQUAMOUS EPITHELIAL CELL,UR FEW /LPF (FEW)
[2023-10-26 13:56] LABS: URINE AMPHETAMINE SCREEN NEGATIVE (Neg); URINE BARBITUATE SCREEN NEGATIVE (Neg); URINE BENZODIAZEPINES SCREEN NEGATIVE (Neg); URINE CANNABINOID SCREEN NEGATIVE (Neg); URINE COCAINE SCREEN NEGATIVE (Neg); URINE METHADONE SCREEN NEGATIVE (Neg); URINE OPIATE SCREEN POSITIVE (Neg); URINE PHENCYCLIDINE SCREEN NEGATIVE (Neg)
[2023-10-26 18:00] VITALS: BP 115/69; PULSE 101; RESP 15; TEMP 98.8; O2SAT 94
[2023-10-26] MEDS: CefTRIAXone/D5W-Rocephin 1gm 50 ML IV SCH (18:10)
[2023-10-26] MEDS: azithromycin/NS 500mg/250ml 250 ML IV SCH (19:47)
[2023-10-26] MEDS: HYDROmorphone 1 mg/ml syringe IV PRN (20:02)
[2023-10-26] MEDS: insulin glargine (Lantus) pen - multi-dose SQ SCH (21:00)
[2023-10-26 22:00] VITALS: BP 92/55; PULSE 82; RESP 16; TEMP 96.4; O2SAT 93
[2023-10-27] MEDS: LidoCAINE 2% Topical Jelly 11mL syringe (UROJET) TOP ONE (00:50)
[2023-10-27 06:29] VITALS: BP 105/72; PULSE 105; RESP 15; TEMP 97.3; O2SAT 94
[2023-10-27 07:33] LABS: ALBUMIN 1.9 G/DL (3.4-5.0); ANION GAP 14 (8-16); BLOOD UREA NITROGEN 38 MG/DL (7-18); BUN/CREATININE RATIO 22.5 (10.0-20.0); CALCIUM 8.1 MG/DL (8.5-10.1); CHLORIDE 110 MMOL/L (99-107); CREATININE 1.69 MG/DL (0.40-0.90); GLUCOSE 199 MG/DL (70-104); MAGNESIUM 2.1 MG/DL (1.5-2.4); PHOSPHORUS 3.7 MG/DL (2.3-4.5); SODIUM 142 MMOL/L (135-145); TOTAL CARBON DIOXIDE 18.5 MMOL/L (24-32); eCRCL 23 ML/MIN; eGFR 29 ML/MIN
[2023-10-27 07:34] LABS: POTASSIUM 4.3 MMOL/L (3.5-5.1)
[2023-10-27 08:52] LABS: BASOPHILS % (AUTO) 0.2 % (0-1); EOSINOPHILS # (AUTO) 0.1 X10'3 (0-0.9); EOSINOPHILS % (AUTO) 0.7 % (0-6); HEMATOCRIT 34.5 % (35.0-45.0); LYMPHOCYTES # (AUTO) 0.8 X10'3 (1.1-4.8); LYMPHOCYTES % (AUTO) 8.4 % (21-51); MEAN CORPUSCULAR HGB CONC 31.8 g/dL (33.0-36.5); MEAN CORPUSCULAR VOLUME 85.1 FL (78-98); MEAN PLATELET VOLUME 7.7 FL (7.4-10.4); MONOCYTES # (AUTO) 0.6 X10'3 (0-0.9); MONOCYTES % (AUTO) 5.9 % (2-12); NEUTROPHILS # (AUTO) 8.4 X10'3 (1.8-7.7); NEUTROPHILS % (AUTO) 84.8 % (42-75); PLATELET COUNT 109 X10'3 (140-440); RED BLOOD COUNT 4.06 X10'6 (4.20-5.60); RED CELL DISTRIBUTION WIDTH 23.9 % (11.5-14.5); WHITE BLOOD COUNT 9.9 X10'3 (4.5-11.0)
[2023-10-27 09:23] LABS: ANISOCYTOSIS 3+; MICROCYTOSIS 1+; PLATELET ESTIMATE DECREASED; POIKILOCYTOSIS 1+
[2023-10-27 10:00] VITALS: BP 96/58; PULSE 105; RESP 12; TEMP 97.4; O2SAT 92
[2023-10-27] MEDS: anastrozole 1 MG tablet PO SCH (10:08)
[2023-10-27] MEDS: apixaban 2.5mg tablet PO SCH (11:22)
[2023-10-27] MEDS: ondansetron/PF 4mg/2ml inj IV PRN (12:29)
[2023-10-27 18:00] VITALS: BP 100/64; PULSE 97; RESP 12; TEMP 97.4; O2SAT 100
[2023-10-27 19:40] VITALS: BP 96/54
[2023-10-27 22:00] VITALS: BP 96/40; PULSE 108; RESP 12; TEMP 97; O2SAT 92
[2023-10-28 05:00] VITALS: BP 96/68; PULSE 83; RESP 15; TEMP 97.1; O2SAT 97
[2023-10-28 08:56] LABS: ALBUMIN 1.8 G/DL (3.4-5.0); ANION GAP 13 (8-16); BLOOD UREA NITROGEN 37 MG/DL (7-18); BUN/CREATININE RATIO 24.3 (10.0-20.0); CALCIUM 8.3 MG/DL (8.5-10.1); CHLORIDE 108 MMOL/L (99-107); CREATININE 1.52 MG/DL (0.40-0.90); GLUCOSE 175 MG/DL (70-104); MAGNESIUM 2.3 MG/DL (1.5-2.4); PHOSPHORUS 3.2 MG/DL (2.3-4.5); POTASSIUM 4.2 MMOL/L (3.5-5.1); SODIUM 139 MMOL/L (135-145); eCRCL 25 ML/MIN; eGFR 33 ML/MIN
[2023-10-28 09:01] LABS: BASOPHILS % (AUTO) 0.2 % (0-1); EOSINOPHILS # (AUTO) 0.2 X10'3 (0-0.9); EOSINOPHILS % (AUTO) 2.2 % (0-6); HEMATOCRIT 35.7 % (35.0-45.0); HEMOGLOBIN 11.3 g/dl (12.0-16.0); LYMPHOCYTES # (AUTO) 0.8 X10'3 (1.1-4.8); LYMPHOCYTES % (AUTO) 9.3 % (21-51); MEAN CORPUSCULAR HGB CONC 31.7 g/dL (33.0-36.5); MEAN CORPUSCULAR VOLUME 85.3 FL (78-98); MONOCYTES # (AUTO) 0.6 X10'3 (0-0.9); NEUTROPHILS # (AUTO) 7.1 X10'3 (1.8-7.7); NEUTROPHILS % (AUTO) 81.3 % (42-75); PLATELET COUNT 140 X10'3 (140-440); RED BLOOD COUNT 4.18 X10'6 (4.20-5.60); RED CELL DISTRIBUTION WIDTH 24.1 % (11.5-14.5); WHITE BLOOD COUNT 8.8 X10'3 (4.5-11.0)
[2023-10-28 10:00] VITALS: BP 108/65; PULSE 101; RESP 20; TEMP 96.8; O2SAT 98
[2023-10-28 12:03] LABS: HYPOCHROMASIA 1+; PLATELET ESTIMATE NORMAL; POLYCHROMASIA FEW
[2023-10-28 12:04] LABS: ACANTHOCYTES FEW; ANISOCYTOSIS 3+; BURR CELLS FEW; ELLIPTOCYTES FEW; TEAR DROP CELLS FEW
[2023-10-28] MEDS: fluconazole 40mg/ml oral suspension 35ml bottle PO SCH (12:33)
[2023-10-28] MEDS: HYDROmorphone 1 mg/ml syringe IV PRN (13:34)
[2023-10-28 18:00] VITALS: BP 117/63; PULSE 104; RESP 14; TEMP 97.5; O2SAT 93
[2023-10-28 20:25] VITALS: RESP 14; O2SAT 93
[2023-10-28 22:00] VITALS: BP 116/79; PULSE 115; RESP 15; TEMP 98; O2SAT 94
[2023-10-28] MEDS: magnesium hydroxide 30ml (MOM) UD suspension PO PRN (22:25)
[2023-10-29 06:00] VITALS: BP 110/73; PULSE 105; RESP 18; TEMP 97.8; O2SAT 94
[2023-10-29 07:03] LABS: BASOPHILS % (AUTO) 0.3 % (0-1); EOSINOPHILS # (AUTO) 0.1 X10'3 (0-0.9); EOSINOPHILS % (AUTO) 1.9 % (0-6); HEMATOCRIT 34.5 % (35.0-45.0); HEMOGLOBIN 11.3 g/dl (12.0-16.0); LYMPHOCYTES # (AUTO) 0.6 X10'3 (1.1-4.8); LYMPHOCYTES % (AUTO) 9.2 % (21-51); MEAN CORPUSCULAR HEMOGLOBIN 27.8 PG (27.0-31.0); MEAN CORPUSCULAR HGB CONC 32.8 g/dL (33.0-36.5); MEAN CORPUSCULAR VOLUME 84.9 FL (78-98); MEAN PLATELET VOLUME 7.8 FL (7.4-10.4); MONOCYTES # (AUTO) 0.4 X10'3 (0-0.9); MONOCYTES % (AUTO) 5.7 % (2-12); NEUTROPHILS # (AUTO) 5.5 X10'3 (1.8-7.7); NEUTROPHILS % (AUTO) 82.9 % (42-75); PLATELET COUNT 121 X10'3 (140-440); RED BLOOD COUNT 4.07 X10'6 (4.20-5.60); RED CELL DISTRIBUTION WIDTH 24.3 % (11.5-14.5); WHITE BLOOD COUNT 6.6 X10'3 (4.5-11.0)
[2023-10-29 07:20] LABS: ANION GAP 13 (8-16); BLOOD UREA NITROGEN 36 MG/DL (7-18); BUN/CREATININE RATIO 22.5 (10.0-20.0); CALCIUM 8.3 MG/DL (8.5-10.1); CHLORIDE 106 MMOL/L (99-107); GLUCOSE 186 MG/DL (70-104); MAGNESIUM 2.1 MG/DL (1.5-2.4); POTASSIUM 3.8 MMOL/L (3.5-5.1); SODIUM 139 MMOL/L (135-145); TOTAL CARBON DIOXIDE 20.5 MMOL/L (24-32); eCRCL 24 ML/MIN; eGFR 31 ML/MIN
[2023-10-29 10:00] VITALS: BP 108/74; PULSE 106; RESP 16; TEMP 97.5; O2SAT 100
[2023-10-29] MEDS: normal saline 1000ml 1,000 ML IV SCH (17:18)
[2023-10-29 18:00] VITALS: BP 119/80; PULSE 86; RESP 18; TEMP 97.1; O2SAT 94
[2023-10-29 20:00] VITALS: BP 108/66; PULSE 107
[2023-10-29 22:00] VITALS: BP 127/70; PULSE 106; RESP 18; TEMP 97.6; O2SAT 97
[2023-10-30 06:00] VITALS: BP 103/58; PULSE 97; RESP 13; TEMP 97.8; O2SAT 100
[2023-10-30 08:52] LABS: BASOPHILS % (AUTO) 0.2 % (0-1); EOSINOPHILS # (AUTO) 0.2 X10'3 (0-0.9); EOSINOPHILS % (AUTO) 2.7 % (0-6); HEMATOCRIT 34.1 % (35.0-45.0); HEMOGLOBIN 10.9 g/dl (12.0-16.0); LYMPHOCYTES # (AUTO) 0.9 X10'3 (1.1-4.8); LYMPHOCYTES % (AUTO) 10.6 % (21-51); MEAN CORPUSCULAR HEMOGLOBIN 27.3 PG (27.0-31.0); MEAN CORPUSCULAR HGB CONC 31.9 g/dL (33.0-36.5); MEAN CORPUSCULAR VOLUME 85.7 FL (78-98); MEAN PLATELET VOLUME 7.9 FL (7.4-10.4); MONOCYTES # (AUTO) 0.7 X10'3 (0-0.9); MONOCYTES % (AUTO) 7.6 % (2-12); NEUTROPHILS % (AUTO) 78.9 % (42-75); PLATELET COUNT 93 X10'3 (140-440); RED BLOOD COUNT 3.98 X10'6 (4.20-5.60); RED CELL DISTRIBUTION WIDTH 25.1 % (11.5-14.5); WHITE BLOOD COUNT 8.8 X10'3 (4.5-11.0)
[2023-10-30 09:37] LABS: PLATELET ESTIMATE DECREASED
[2023-10-30 09:38] LABS: ANISOCYTOSIS 3+; BURR CELLS FEW; SCHISTOCYTES FEW; TARGET CELLS FEW
[2023-10-30 09:39] LABS: POLYCHROMASIA FEW
[2023-10-30 10:26] LABS: ALBUMIN 1.8 G/DL (3.4-5.0); ANION GAP 12 (8-16); BLOOD UREA NITROGEN 34 MG/DL (7-18); BUN/CREATININE RATIO 22.7 (10.0-20.0); CALCIUM 7.8 MG/DL (8.5-10.1); CHLORIDE 103 MMOL/L (99-107); MAGNESIUM 2.1 MG/DL (1.5-2.4); PHOSPHORUS 2.8 MG/DL (2.3-4.5); POTASSIUM 4.4 MMOL/L (3.5-5.1); SODIUM 135 MMOL/L (135-145); TOTAL CARBON DIOXIDE 20.2 MMOL/L (24-32); eCRCL 26 ML/MIN; eGFR 33 ML/MIN
[2023-10-30 10:28] LABS: GLUCOSE 198 MG/DL (70-104)
[2023-10-30 11:00] VITALS: BP 124/61; PULSE 95; RESP 16; TEMP 97; O2SAT 95
[2023-10-30] MEDS: furosemide 20 MG/2 ML vial IV ONE (12:54)
[2023-10-30] MEDS: normal saline 500ml IV soln 500 ML IV ONE (17:01)
[2023-10-30] MEDS ORDERED: ferrous gluconate 324mg tablet PO SCH (17:30)
[2023-10-30 18:00] VITALS: BP 113/73; PULSE 98; RESP 16; TEMP 97.7; O2SAT 94
[2023-10-30] MEDS: lactose-reduced food (Ensure Enlive) - 237ml bottle PO SCH (18:28)
[2023-10-30 19:30] VITALS: BP 119/80; PULSE 97
[2023-10-30 22:00] VITALS: BP 111/79; PULSE 94; RESP 15; TEMP 97.2; O2SAT 99
[2023-10-31] VITALS (7 sets, daily range): BP systolic 103–113; BP diastolic 54–87; PULSE 76–102; RESP 16–18; TEMP 96.9–98.2; O2SAT 95–99
[2023-10-31] MEDS: ferrous sulfate 300mg/5ml UD oral liquid PO SCH (10:13)
[2023-10-31] MEDS: multivitamins, therapeutics tablet PO SCH (10:13)
[2023-10-31] MEDS: lactulose 20gm/30ml cup PO SCH (10:32)
[2023-10-31] MEDS: vancomycin 125mg/5ml ORAL solution 5ml UD oral syringe PO SCH (12:25)
[2023-10-31 15:03] LABS: BASOPHILS % (AUTO) 0.1 % (0-1); EOSINOPHILS # (AUTO) 0.2 X10'3 (0-0.9); EOSINOPHILS % (AUTO) 1.9 % (0-6); HEMATOCRIT 31.9 % (35.0-45.0); HEMOGLOBIN 10.2 g/dl (12.0-16.0); LYMPHOCYTES # (AUTO) 0.6 X10'3 (1.1-4.8); LYMPHOCYTES % (AUTO) 7.3 % (21-51); MEAN CORPUSCULAR HEMOGLOBIN 27.3 PG (27.0-31.0); MEAN CORPUSCULAR HGB CONC 32.1 g/dL (33.0-36.5); MEAN CORPUSCULAR VOLUME 85.3 FL (78-98); MEAN PLATELET VOLUME 7.7 FL (7.4-10.4); MONOCYTES # (AUTO) 0.4 X10'3 (0-0.9); MONOCYTES % (AUTO) 5.4 % (2-12); NEUTROPHILS # (AUTO) 6.9 X10'3 (1.8-7.7); NEUTROPHILS % (AUTO) 85.3 % (42-75); PLATELET COUNT 94 X10'3 (140-440); RED BLOOD COUNT 3.75 X10'6 (4.20-5.60); RED CELL DISTRIBUTION WIDTH 25.6 % (11.5-14.5); WHITE BLOOD COUNT 8.1 X10'3 (4.5-11.0)
[2023-10-31 15:20] LABS: ALANINE AMINOTRANSFERASE 23 U/L (12-78); ALBUMIN 1.8 G/DL (3.4-5.0); ALBUMIN/GLOBULIN RATIO 0.5 (1.1-1.5); ALKALINE PHOSPHATASE 375 IU/L (46-116); ANION GAP 8 (8-16); ASPARTATE AMINO TRANSFERASE 30 U/L (10-37); BILIRUBIN,TOTAL 0.7 MG/DL (0.1-1.0); BLOOD UREA NITROGEN 33 MG/DL (7-18); BUN/CREATININE RATIO 21.6 (10.0-20.0); CHLORIDE 104 MMOL/L (99-107); CREATININE 1.53 MG/DL (0.40-0.90); GLUCOSE 266 MG/DL (70-104); POTASSIUM 3.7 MMOL/L (3.5-5.1); SODIUM 135 MMOL/L (135-145); TOTAL CARBON DIOXIDE 22.8 MMOL/L (24-32); TOTAL PROTEIN 5.4 G/DL (6.4-8.2); eCRCL 25 ML/MIN; eGFR 32 ML/MIN
[2023-10-31 15:53] LABS: ANISOCYTOSIS 3+; PLATELET ESTIMATE DECREASED; SCHISTOCYTES FEW
[2023-10-31 15:55] LABS: TARGET CELLS FEW
[2023-10-31] MEDS ORDERED: morphine 2 MG/ML inj. syringe IV PRN (15:55)
[2023-10-31 15:56] LABS: POLYCHROMASIA FEW
[2023-10-31 15:57] LABS: BURR CELLS FEW
[2023-11-01 06:03] VITALS: BP 108/68; PULSE 87; RESP 14; TEMP 97.4; O2SAT 96
[2023-11-01 08:00] VITALS: RESP 16; O2SAT 96
[2023-11-01 09:20] LABS: BASOPHILS % (AUTO) 0.2 % (0-1); EOSINOPHILS # (AUTO) 0.2 X10'3 (0-0.9); EOSINOPHILS % (AUTO) 2.1 % (0-6); HEMATOCRIT 35.1 % (35.0-45.0); HEMOGLOBIN 11.1 g/dl (12.0-16.0); LYMPHOCYTES # (AUTO) 0.9 X10'3 (1.1-4.8); LYMPHOCYTES % (AUTO) 8.8 % (21-51); MEAN CORPUSCULAR HEMOGLOBIN 27.1 PG (27.0-31.0); MEAN CORPUSCULAR HGB CONC 31.7 g/dL (33.0-36.5); MEAN CORPUSCULAR VOLUME 85.4 FL (78-98); MEAN PLATELET VOLUME 8.3 FL (7.4-10.4); MONOCYTES # (AUTO) 0.8 X10'3 (0-0.9); MONOCYTES % (AUTO) 7.5 % (2-12); NEUTROPHILS # (AUTO) 8.4 X10'3 (1.8-7.7); NEUTROPHILS % (AUTO) 81.4 % (42-75); PLATELET COUNT 127 X10'3 (140-440); RED CELL DISTRIBUTION WIDTH 24.8 % (11.5-14.5); WHITE BLOOD COUNT 10.3 X10'3 (4.5-11.0)
[2023-11-01 09:50] LABS: ALANINE AMINOTRANSFERASE 26 U/L (12-78); ALBUMIN 1.6 G/DL (3.4-5.0); ALBUMIN/GLOBULIN RATIO 0.4 (1.1-1.5); ALKALINE PHOSPHATASE 404 IU/L (46-116); ANION GAP 12 (8-16); ASPARTATE AMINO TRANSFERASE 32 U/L (10-37); BILIRUBIN,TOTAL 0.7 MG/DL (0.1-1.0); BLOOD UREA NITROGEN 35 MG/DL (7-18); BUN/CREATININE RATIO 22.6 (10.0-20.0); CALCIUM 8.4 MG/DL (8.5-10.1); CHLORIDE 106 MMOL/L (99-107); CREATININE 1.55 MG/DL (0.40-0.90); GLUCOSE 284 MG/DL (70-104); POTASSIUM 3.8 MMOL/L (3.5-5.1); SODIUM 137 MMOL/L (135-145); TOTAL CARBON DIOXIDE 18.6 MMOL/L (24-32); TOTAL PROTEIN 5.7 G/DL (6.4-8.2); eCRCL 25 ML/MIN; eGFR 32 ML/MIN
[2023-11-01 10:00] VITALS: BP 125/68; PULSE 120; RESP 18; TEMP 97.2; O2SAT 98
[2023-11-01] MEDS: morphine 2 MG/ML inj. syringe IV PRN (13:55)
[2023-11-01 18:00] VITALS: BP_SYST 116; BP_SYST 127; BP_DIAS 71; BP_DIAS 85; PULSE 100; PULSE 95; RESP 14; RESP 16; TEMP 97.9; TEMP 98.6; O2SAT 95; O2SAT 98
[2023-11-01 20:00] VITALS: RESP 14; O2SAT 97
[2023-11-01 22:00] VITALS: BP 126/58; PULSE 105; RESP 14; TEMP 97.7; O2SAT 97
[2023-11-02 06:00] VITALS: BP 118/65; PULSE 99; RESP 16; TEMP 97.5; O2SAT 98
[2023-11-02 10:00] VITALS: BP 103/31; PULSE 101; RESP 15; TEMP 97.8; O2SAT 93
[2023-11-02 12:19] VITALS: RESP 16
[2023-11-02] MEDS ORDERED: lactose-reduced food (Ensure Enlive) - 237ml bottle PO SCH (13:00)
[2023-11-10] MEDS ORDERED: MORP10SY6 PO (11:02)
[2023-11-10] MEDS ORDERED: LORA2ORA PO (11:02)
== END 2023-11-02 15:35 | DRG 432 ==
LOC: ER 13:40 → ED HOLD 20:57 → EDBEDREQ 10-26 00:07 → ORTHO 4S 10-26 02:40
PROVIDERS: ADMIT Internal Medicine; ATTEND Internal Medicine
PROC: 05HB33Z Insertion of Infusion Device into Right Basilic Vein, Percutaneous Approach (ICD-10-PCS; 2023-10-29)
PROC: 0W9G3ZZ Drainage of Peritoneal Cavity, Percutaneous Approach (ICD-10-PCS; principal; 2023-10-31)
DX: K74.60 Unspecified cirrhosis of liver (principal); I50.33 Acute on chronic diastolic (congestive) heart failure; K76.7 Hepatorenal syndrome; J18.9 Pneumonia, unspecified organism; I81 Portal vein thrombosis; C22.8 Malignant neoplasm of liver, primary, unspecified as to type; R18.8 Other ascites; I11.0 Hypertensive heart disease with heart failure; I48.91 Unspecified atrial fibrillation; K75.81 Nonalcoholic steatohepatitis (NASH); E77.8 Other disorders of glycoprotein metabolism; E03.9 Hypothyroidism, unspecified; D64.9 Anemia, unspecified; D69.6 Thrombocytopenia, unspecified; Z66 Do not resuscitate; E11.9 Type 2 diabetes mellitus without complications; R16.0 Hepatomegaly, not elsewhere classified; I25.10 Atherosclerotic heart disease of native coronary artery without angina pectoris; E78.00 Pure hypercholesterolemia, unspecified; Z88.2 Allergy status to sulfonamides; Z88.5 Allergy status to narcotic agent; Z88.8 Allergy status to other drugs, medicaments and biological substances; Z79.01 Long term (current) use of anticoagulants; Z79.899 Other long term (current) drug therapy; Z95.1 Presence of aortocoronary bypass graft; Z90.49 Acquired absence of other specified parts of digestive tract
CPT/HCPCS: 36410; 36415; 49083; 70450; 71045; 74176; 76705; 76937; 80048; 80053; 80305; 80320; 81001; 82140; 82948; 83605; 83690; 83735; 84100; 84145; 84484; 85008; 85025; 87040; 87045; 87046; 87077; 87081; 87088; 89055; 93005; 96365; 96367; 96375; 97110; 97161; 97530; 99285; A4314; A5200; A6213; A6250; A6258; A6449; C1751; C1758; G0378; J0456; J0696; J1170; J1815; J1940; J2270; J2405; J2930; J7030; J7040; P9047